=== PATIENT | female | born 1980 | race Caucasian/White ===

== ENCOUNTER 2018-05-27 06:23 | Emergency (ER) | payer OTHER ==
[~2018-05-27] VITALS: Ht 165.1 cm; Wt 72.6 kg
[~2018-05-27 06:23] MED LIST: CARV12.5 PO; DILT120T14 PO; EPLE25TA PO; POTASSIUM PO
[2018-05-27] MEDS ORDERED: ONDANSETRON 4 MG/2 ML VIAL IV ONE ×2 (06:45→08:15)
[2018-05-27] MEDS ORDERED: LORAZEPAM 2 MG/1 ML VIAL IV ONE ×2 (06:45→09:30)
[2018-05-27] MEDS ORDERED: IV NORMAL SALINE 1000 ML BAG IV ONE ×3 (06:45→10:15)
[2018-05-27] MEDS ORDERED: LORAZEPAM 2 MG/1 ML VIAL ONE ×2 (06:50→09:32)
[2018-05-27] MEDS ORDERED: ONDANSETRON 4 MG/2 ML VIAL ONE ×4 (06:50→11:33)
[2018-05-27] MEDS ORDERED: TELO250T PO (06:53)
[2018-05-27] MEDS ORDERED: POTA20TA10 PO (06:53)
[2018-05-27] MEDS ORDERED: VALS40TA4 PO (06:53)
[2018-05-27] MEDS ORDERED: TOPI25TA PO (06:53)
[2018-05-27] MEDS ORDERED: [UNRECOGNIZED DRUG - OTHER] PO (06:53)
[2018-05-27] MEDS ORDERED: OCTREOTIDE PO (06:53)
[2018-05-27] MEDS ORDERED: HYDR-4354 PO (06:53)
[2018-05-27] MEDS ORDERED: DIPH25CA83 PO (06:53)
[2018-05-27] MEDS ORDERED: BP MED PO (06:53)
[2018-05-27 07:01] LABS: BASOPHILS % (AUTO) 0.4 % (0.0-2.0); HEMATOCRIT 40.3 % (31.2-41.9); HEMOGLOBIN 13.9 g/dL (10.9-14.3); LYMPHOCYTES # (AUTO) 0.8 K/uL (20.0-40.0); LYMPHOCYTES % (AUTO) 7.6 % (20.5-51.5); MEAN CORPUSCULAR HEMOGLOBIN 29.2 uug (24.7-32.8); MEAN CORPUSCULAR HGB CONC 35 g/dL (32.3-35.6); MEAN CORPUSCULAR VOLUME 84.4 fL (75.5-95.3); MONOCYTES # (AUTO) 0.7 K/uL (2.0-10.0); MONOCYTES % (AUTO) 6.4 % (0.0-11.0); NEUTROPHILS # (AUTO) 8.9 K/uL (1.8-8.9); NEUTROPHILS % (AUTO) 85.6 % (38.5-71.5); PLATELET COUNT (AUTO) 323 K/uL (179-408); RED BLOOD CELL COUNT(AUTO) 4.78 MIL/uL (3.63-4.92); WHITE BLOOD COUNT (AUTO) 10.4 K/uL (3.8-11.8)
--- NOTE | 2018-05-27 07:04 | NUR ---
Report given to [place].
[2018-05-27 07:08] LABS: POTASSIUM 3.5 mmol/L (3.5-5.1)
[2018-05-27] MEDS ORDERED: ONDANSETRON IV *ER 4 MG/2 ML VIAL IV ONE ×2 (07:15→11:30)
[2018-05-27] MEDS ORDERED: HYDROMORPHONE 1 MG/1 ML DISP.SYRIN IV ONE ×2 (07:15→08:15)
[2018-05-27] MEDS ORDERED: HYDROMORPHONE 1 MG/1 ML DISP.SYRIN ONE ×2 (07:19→08:17)
[2018-05-27 07:23] LABS: BILIRUBIN,DIRECT 0.2 mg/dL (0.0-0.2); TOTAL PROTEIN, SERUM 8.3 g/dL (6.4-8.2)
[2018-05-27] MEDS ORDERED: BENZONATATE 100 MG CAPSULE PO ONE (11:15)
[2018-05-27] MEDS ORDERED: BENZONATATE 100 MG CAPSULE ONE (11:16)
--- NOTE | 2018-05-27 11:48 | NUR ---
MSE COMPLETED, PT REC'D ALL MEDS MD ORDERED. PT WAS GIVEN ACI/ RX 1. IV D/C'D INTACT. PT THEN GOT DRESSED/TOOK ALL BELONGINGS. PT WAS THEN ESCORTED TO PRIVATE AUTO VIA WHEELCHAIR. PRESENT AND TO DRIVE.
[2018-05-27 11:51] VITALS: BP 124/68
== END 2018-05-27 11:52 | disposition home or self-care (01) ==
LOC: ER 06:25
DX: R11.10 Vomiting, unspecified (principal); I10 Essential (primary) hypertension; Z90.49 Acquired absence of other specified parts of digestive tract; Z88.1 Allergy status to other antibiotic agents; Z79.899 Other long term (current) drug therapy; Z79.891 Long term (current) use of opiate analgesic
CPT/HCPCS: 36415; 71045; 74176; 80048; 80076; 83605 ×2; 83690; 84484; 84702; 85025; 85730; 87040; 87400; 93005; 96361; 96374; 96375; 96376; 99284; J1170 ×2; J2060 ×2; J2405 ×4; 70030-TC; A4663; J7030